=== PATIENT | female | born 1985 ===

== ENCOUNTER 2021-05-22 10:00 | Inpatient (IN) | payer OTHER ==
[~2021-05-22] VITALS: Ht 172.7 cm; Wt 3.2 kg
[2021-05-22] MEDS ORDERED: SYNTHROID200 MCG PO (13:30)
[2021-05-22] MEDS ORDERED: OBTREX DHA COM1 EACH PO (13:31)
[2021-05-30] MEDS ORDERED: KETO10TA2 PO (09:57)
== END 2021-05-30 10:56 | disposition home or self-care (01) | DRG 788 ==
LOC: SURG-SUITE 05-27 08:36 → OB/GYN 05-27 08:36 → O/R 05-27 08:36 → SURH 05-27 10:00 → OB/GYN 05-27 14:03 → SURG-SUITE 05-28 10:22
PROVIDERS: ADMIT Obstetrics & Gynecology; ATTEND Obstetrics & Gynecology
PROC: 4A1HXFZ Monitoring of Products of Conception, Cardiac Rhythm, External Approach (ICD-10-PCS; 2021-05-27)
PROC: 10D00Z1 Extraction of Products of Conception, Low, Open Approach (ICD-10-PCS; principal; 2021-05-27 10:45)
DX: O32.1XX0 Maternal care for breech presentation, not applicable or unspecified (principal); Z3A.39 39 weeks gestation of pregnancy; Z37.0 Single live birth